=== PATIENT | male | born 1990 | race Two or more races ===

== ENCOUNTER 2023-10-04 08:56 | Emergency (ER) | payer OTHER ==
[~2023-10-04] VITALS: Ht 175.3 cm; Wt 105.3 kg
[2023-10-04 09:36] VITALS: BP 154/100; PULSE 104; RESP 16; TEMP 97.8; O2SAT 100
[2023-10-04] MEDS: methylPREDNISolone SOD SUCC 125 MG/2 ML VL IM ONE (10:28)
[2023-10-04] MEDS: KETOROLAC TROMETH 60MG/2ML VIAL IM ONE (10:29)
[2023-10-04] MEDS ORDERED: TRAM50TA2 PO (11:23)
== END 2023-10-04 11:45 | disposition home or self-care (01) ==
LOC: ER 08:56
DX: M54.31 Sciatica, right side (principal); Z88.8 Allergy status to other drugs, medicaments and biological substances
CPT/HCPCS: 96372; 99284; J1885; J2930

== ENCOUNTER 2023-10-25 13:53 | Emergency (ER) | payer OTHER ==
[~2023-10-25] VITALS: Ht 175.3 cm; Wt 103.0 kg
[~2023-10-25 13:53] MED LIST: TRAM50TA2 PO
[2023-10-25] MEDS ORDERED: CYCL-839 PO (17:44)
[2023-10-25] MEDS ORDERED: HYDR-4902 PO (17:44)
[2023-10-25 18:00] VITALS: TEMP 97.3; O2SAT 96
[2023-10-25] MEDS: METHOCARBAMOL 500 MG TAB PO ONE (18:06)
[2023-10-25] MEDS: DexAMETHasone SOD PHOS 10MG/1ML VIAL INJ IM ONE (18:06)
[2023-10-25 18:07] VITALS: BP 113/93; PULSE 87; RESP 18
[2023-10-25] MEDS: MORPHINE SULFATE INJ 2 MG/ml SYRG IM ONE (18:07)
== END 2023-10-25 18:28 | disposition home or self-care (01) ==
LOC: ER 13:53
DX: M62.830 Muscle spasm of back (principal); M51.36 Other intervertebral disc degeneration, lumbar region; M48.00 Spinal stenosis, site unspecified; Z79.899 Other long term (current) drug therapy; Z88.2 Allergy status to sulfonamides
CPT/HCPCS: 72131; 96372; 99285; J1100; J2270

== ENCOUNTER 2024-11-11 09:37 | Inpatient (IN) | payer OTHER ==
[~2024-11-11] VITALS: Ht 177.8 cm; Wt 100.0 kg
[~2024-11-11 09:37] MED LIST changes: +CYCL-839 PO; +HYDR-4902 PO
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
[2024-11-11 10:10] VITALS: PULSE 75; RESP 18; O2SAT 95
[2024-11-11] MEDS: diazePAM 2 MG TAB PO ONE (10:19)
[2024-11-11] MEDS: fentaNYL CITRATE 100 MCG/2 ML VL IV ONE (10:20)
[2024-11-11] MEDS: KETOROLAC TROMETH 30 MG/ML 1ML VIAL IV ONE (10:20)
[2024-11-11 11:30] LABS: Basophils # (auto) 0.1 10 ^3/uL (0-0.2); Basophils % (auto) 0.9 % (0.0-2.0); Eosinophils # (auto) 0.2 10 ^3/uL (0-0.8); Eosinophils % (auto) 2.8 % (0.0-7.0); Hematocrit 44.2 % (41.0-53.0); Hemoglobin 14.7 g/dL (13.5-17.5); Lymphocytes # (auto) 2.7 10 ^3/uL (0.4-5.4); Lymphocytes % (auto) 43.9 % (10.0-50.0); Mean Corpuscular Hemoglobin 29.6 pg (28.0-32.0); Mean Corpuscular Hgb Conc. 33.2 g/dL (32.0-36.0); Mean Corpuscular Volume 89.1 fL (80.0-100.0); Monocytes # (auto) 0.5 10 ^3/uL (0-1.3); Monocytes % (auto) 8.7 % (0.0-12.0); Neutrophils # (auto) 2.7 10 ^3/uL (1.6-8.6); Neutrophils % (auto) 43.7 % (37.0-80.0); Nucleated Red Blood Cells % 0.4 %; Platelet Count (auto) 404 10^3/uL (140-450); Red Blood Cells 4.97 10^6/uL (4.5-5.90); Red Cell Distribution Width 16.1 % (11.8-14.3); White Blood Cell 6.3 10^3/uL (4.4-10.8)
[2024-11-11 11:44] LABS: Chloride 106 mmol/L (98-107); Potassium 4.1 mmol/L (3.5-5.1); Sodium 140 mmol/L (136-145)
[2024-11-11 11:45] LABS: Anion Gap 7 (5-15); Calcium 9.2 mg/dL (8.7-10.4); Carbon Dioxide 27 mmol/L (20-31)
[2024-11-11] MEDS: ONDANSETRON HCL 4 MG/2 ML VIAL IV ONE (11:45)
[2024-11-11] MEDS: MORPHINE SULFATE INJ 2 MG/ml SYRG IV ONE ×2 (11:46→13:30)
[2024-11-11 11:50] LABS: BUN/Creatinine Ratio 7.8 (10.0-20.0); Blood Urea Nitrogen 10 mg/dL (9-23); Glucose 93 mg/dL (74-106)
[2024-11-11 12:00] VITALS: TEMP 98
--- NOTE | 2024-11-11 12:16 | DVH ---
EXAM: CT LS SPINE WO CONTRAST DATE OF SERVICE: 11/11/2024 11:10 AM ORDERING PHYSICIAN: NILA BELL REASON FOR EXAM: intractable pain TECHNIQUE: Low-dose CT scanner utilizing multidetector equipment Radiation dose: Total exam DLP equals 839 M Gy per cm COMPARISON: CT LS SPINE WO CONTRAST on DOS: 10/25/23 FINDINGS: 2 mm annular disc bulge of the L4-5 level. 7 mm central and right-sided disc extrusion of the L5-S1 level with impingement upon the ventral aspe ct of the thecal sac, axial image 80, series 3. Mild to moderate bilateral neural foraminal narrowing of the L5-S1 level. IMPRESSION: 1. 7 mm central and right-sided disc extrusion of the L5-S1 level . The extent of the disc extrusion is well seen on sagittal image 47, series 604. 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 Normal sacroiliac joints.
[2024-11-11 12:28] LABS: Erythrocyte Sedimentation Rate 2 mm/hr (0-20)
[2024-11-11] MEDS ORDERED: MORPHINE SULFATE INJ 2 MG/ml SYRG IV PRN (15:30)
[2024-11-11] MEDS ORDERED: ACETAMINOPHEN 325 MG TAB PO PRN (15:30)
[2024-11-11] MEDS ORDERED: KETOROLAC TROMETH 30 MG/ML 1ML VIAL IV PRN (15:30)
[2024-11-11] MEDS ORDERED: HYDROcodone-ACET 5/325MG TAB PO PRN (15:30)
[2024-11-11] MEDS ORDERED: SODIUM CHLORIDE 0.9% 1,000 ML IV SCH (15:30)
[2024-11-11 15:50] VITALS: BP 162/107; PULSE 84; RESP 20; O2SAT 96
[2024-11-12] MEDS ORDERED: ENOXAPARIN SOD 40 MG/0.4 ML SYRINGE SC SCH (10:00)
== END 2024-11-11 15:54 | disposition left against medical advice (07) | DRG 552 ==
LOC: EDBD 09:37 → ER 09:37 → EDUNIT# 09:37 → OVERFLOW 15:21
PROVIDERS: ADMIT Nurse Practitioner Family; ATTEND Nurse Practitioner Family
DX: M54.50 Low back pain, unspecified (principal); M48.00 Spinal stenosis, site unspecified; Z53.29 Procedure and treatment not carried out because of patient's decision for other reasons
CPT/HCPCS: 36415; 72131; 80048; 85025; 85652; 96374; 96375; 96376; 99291; G0378; J1885; J2405